=== PATIENT | female | born 1935 | race Caucasian/White ===

== ENCOUNTER → 2016-06-02 | Outpatient (REF) | payer MEDICARE, OTHER ==
[~2016-06-02] MED LIST: ATEN25TA PO; GENTGEL OP; GLUC750T22 PO; INVO100T PO; LEXA1TAB PO; LUTE20TA PO; MAGN500C PO; OSCA200T PO; PRAV40TA2 PO; REQU1TAB16 PO; REST0.05 OP; VITA100041 PO
[2016-06-02 19:00] LABS: VITAMIN B12 LEVEL 493 PG/ML
[2016-06-02 19:01] LABS: FOLATE 20.4 NG/ML
== END ==
LOC: M LAB REF 16:58
PROVIDERS: ATTEND Nurse Practitioner Family
DX: R41.81 Age-related cognitive decline (principal); Z11.3 Encounter for screening for infections with a predominantly sexual mode of transmission; Z72.89 Other problems related to lifestyle

== ENCOUNTER → 2016-09-24 | Outpatient (REF) | payer MEDICARE, OTHER | LOC: M LAB REF 16:14 | PROVIDERS: ATTEND Internal Medicine | DX: R41.81 Age-related cognitive decline (principal) ==

== ENCOUNTER → 2016-10-07 | Outpatient (CLI) | payer MEDICARE ==
--- NOTE | 2016-10-07 11:25 | REPMRS ---
Patient History The patient states she has not had a clinical breast exam in over a year. Patient is postmenopausal, has history of colorectal cancer at age 69, and has history of breast cancer at age 68. Family history of colorectal cancer in father at age 50 or over, colorectal cancer in maternal grandfather at age 50 or over, unknown cancer in mother at age 29, breast cancer in maternal grandmother at age 50 or over, unknown cancer in brother at age 50 or over, and breast cancer in daughter. Digital Mammo Screening Bilat: October 07, 2016 - Exam #: [id number] Bilateral CC and MLO view(s) were taken. Technologist: Ellen Sesay, Technologist Prior study comparison: September 02, 2015, digital mammo diagnostic bilateral performed at [facility]. March 01, 2012, left breast digital mammo diagnostic unilateral performed at [facility]. February 21, 2012, bilateral digital mammo screening bilat performed at [facility]. FINDINGS: There are scattered fibroglandular densities. There are stable post treatment changes in the right breast.There has been no change in the appearance of the mammogram from the prior studies. There is a mild amount of scattered fibroglandular density which is fairly symmetric. There is no interval development of dominant mass, architectural distortion, or clustered microcalcification suggestive of malignancy. ASSESSMENT: BI-RADS/ACR category 1 mammogram. Negative. Recommendation Routine screening mammogram in 1 year (for women over age 40). This mammogram was interpreted with the aid of an FDA-approved computer-aided dectection system. Electronically Signed By: Chintan Baron MD 10/07/16 [id number]
== END ==
LOC: M RAD 10:32
PROVIDERS: ATTEND Internal Medicine
DX: Z12.31 Encounter for screening mammogram for malignant neoplasm of breast (principal); Z80.3 Family history of malignant neoplasm of breast; Z85.3 Personal history of malignant neoplasm of breast